=== PATIENT | female | born 1975 | race Hispanic/Latino ===

== ENCOUNTER 2021-06-26 11:15 | Day surgery (SDC) | payer OTHER ==
[~2021-06-26] VITALS: Ht 167.6 cm; Wt 63.5 kg
[2021-06-26] VITALS (10 sets, daily range): BP systolic 104–114; BP diastolic 58–79
[~2021-06-26 11:15] MED LIST: 0.9%NACL 1000ML 1,000 ML IV ONE
[2021-06-27] MEDS ORDERED: DICY20TA3 PO (11:25)
== END 2021-06-26 13:45 | disposition home or self-care (01) ==
LOC: ENDO 11:15 → DAH 11:15 → ENDO 13:45
PROVIDERS: ATTEND Internal Medicine Gastroenterology
DX: R10.13 Epigastric pain (principal); R19.4 Change in bowel habit; K31.7 Polyp of stomach and duodenum; K21.00 Gastro-esophageal reflux disease with esophagitis, without bleeding; R14.0 Abdominal distension (gaseous); K29.00 Acute gastritis without bleeding; Z82.49 Family history of ischemic heart disease and other diseases of the circulatory system; Z83.3 Family history of diabetes mellitus; Z80.51 Family history of malignant neoplasm of kidney; Z80.0 Family history of malignant neoplasm of digestive organs; Z79.899 Other long term (current) drug therapy; Z79.01 Long term (current) use of anticoagulants
CPT/HCPCS: 43239; 81025; 87635; A4606; C9803; J7030

== ENCOUNTER 2021-06-27 10:36 | Day surgery (SDC) | payer OTHER ==
[~2021-06-27] VITALS: Ht 167.6 cm; Wt 63.5 kg
[~2021-06-27 10:36] MED LIST changes: -0.9%NACL 1000ML 1,000 ML IV ONE; +LIDOCAINE PF 100MG/5ML (2%) SYRINGE 5ML ONE; +MIDAZOLAM HCL 1 MG/ML 2ML VIAL ONE; +PROPOFOL 10 MG/ML 20ML VIAL IV ONE
[2021-06-27] MEDS ORDERED: 0.9%NACL 1000ML 1,000 ML IV ONE (11:14)
[2021-06-27] MEDS ORDERED: DICY20TA3 PO (11:25)
[2021-06-27 11:26] VITALS: BP 105/69
[2021-06-27] MEDS ORDERED: FENTANYL CITRATE PF 50 MCG/1 ML 2ML VIAL ONE (12:34)
[2021-06-27] MEDS ORDERED: MIDAZOLAM HCL 1 MG/ML 2ML VIAL ONE (12:35)
[2021-06-27 13:04] VITALS: BP 111/74
[2021-06-27 13:09] VITALS: BP 105/66
[2021-06-27 13:14] VITALS: BP 101/63
[2021-06-27 13:34] VITALS: BP 97/56
== END 2021-06-27 13:58 | disposition home or self-care (01) ==
LOC: ENDO 10:36 → DAH 10:36 → ENDO 13:58
PROVIDERS: ATTEND Internal Medicine Gastroenterology
DX: K59.00 Constipation, unspecified (principal); K64.0 First degree hemorrhoids; R10.13 Epigastric pain; R14.0 Abdominal distension (gaseous); Z80.0 Family history of malignant neoplasm of digestive organs; Z98.890 Other specified postprocedural states; Z82.49 Family history of ischemic heart disease and other diseases of the circulatory system; Z83.3 Family history of diabetes mellitus; Z80.51 Family history of malignant neoplasm of kidney
CPT/HCPCS: 45378; A4215 ×2; A4221; A4222; A4223; A4606; A4620; A4657; A4663; J2001; J2250 ×2; J2704; J3010; J7030; 99152; 99153